=== PATIENT | male | born 1985 | race Caucasian/White ===

== ENCOUNTER 2017-01-17 22:10 | Emergency (ER) | payer BC ==
[2017-01-17 22:42] LABS: #Lymphocytes 0.9 thou/uL (1.20-3.40); #Monocytes 0.7 thou/uL (0.11-0.59); #Neutrophils 10.7 thou/uL (1.40-6.50); %Basophils 0.2 % (0.0-1.0); %Eosinophils 0.4 % (0.0-10.0); %Lymphocytes 7.4 % (21.0-51.0); %Monocytes 5.7 % (0.0-10.0); Red Blood Cell (RBC) Count 5.76 mill/uL (4.70-6.10); White Blood Cell (WBC) Count 12.4 thou/uL (4.8-10.8)
[2017-01-17 22:53] LABS: Bilirubin Negative (Negative); Blood, Urine Negative (Negative); Glucose, Urine (Dipstick) Negative (Negative); Ketone, Urine Trace mg/dL (Negative); Nitrite Negative (Negative); Protein, Urine (Dipstick) Trace mg/dL (Neg-Trace); Urobilinogen 0.2 mg/dL (0.2-1.0)
[2017-01-17 23:04] LABS: ALT (SGPT) 37 U/L (8-55); AST (SGOT) 27 U/L (5-34); Alkaline Phosphatase 48 U/L (40-150); Anion Gap 13 mmol/L (10-20); BUN (Urea Nitrogen) 12 mg/dL (8.9-20.6); Bilirubin, Total 0.9 mg/dL (0.2-1.2); Calc. Creatinine Clearance 0 mL/min (70-130); Calcium 9.9 mg/dL (7.8-10.44); Carbon Dioxide 25 mmol/L (22-29); Chloride 102 mmol/L (98-107); Estimated GFR-MDRD 69; Globulin 3.7 g/dL (2.4-3.5); Protein, Total 8.5 g/dL (6.0-8.3)
[2017-01-18] MEDS ORDERED: Mag-Al 1200 mg/1200 mg/30 ML UDCUP ONE (01:26)
[2017-01-18] MEDS ORDERED: Lidocaine Viscous Sol 2% 15 ml UD Cup ONE (01:26)
--- NOTE | 2017-01-18 07:53 | ULT ---
PRELIMINARY REPORT/[facility]/EMERGENCY AFTER HOURS PROCEDURE: EXAM: US Abdomen Limited, Right Upper Quadrant CLINICAL HISTORY: 31 years old, male; Pain and signs and symptoms; Nausea and other: Diarrhea; Abdominal pain; Epigastr ic; Patient HX: Epigastric burning pain after eating, diarrhea x 1 day TECHNIQUE: Real-time ultrasound of the right upper quadrant with image documentation. COMPARISON: No relevant prior studies available. FINDINGS: Suspect a small amount of biliary sludge in the gallbladder. No cholelithiasis/shadowing gallstones. No gallbladder wall thickening or pericholecystic fluid. No biliary dilation, common duct measures 3.5 mm. Slight increased echogenicity of the liver may indicate fatty infiltration. Otherwise unremarkable liver, no focal abnormality. Visible pancreas unremarkable. Images of the right kidney show no hydronephrosis. IMPRESSION: Small amount of biliary sludge in the gallbladder. No cholelithiasis or shadowing gallstones. No biliary tree dilation. Other details discussed above. Thank you for allowing us to participate in the care of your patient. Dictated and Authenticated by: Angel Brown MD 01/18/2017 12:57 AM Central Time ([place] & [place]) FINAL REPORT RIGHT UPPER QUADRANT ULTRASOUND: EMERGENCY AFTER HOURS STUDY: Date: 01-18-17 Time: 12:18 a.m. FINAL REPORT: Increased liver echogenicity. Sludge within the gallbladder without overt gallstones or acute cholecy stitis. Code QA/agree with [facility]. POS: DAVID
== END 2017-01-18 03:37 | disposition home or self-care (01) ==
LOC: ERS 22:10
DX: K83.9 Disease of biliary tract, unspecified (principal); R10.13 Epigastric pain
CPT/HCPCS: 36415; 76705; 80053; 81003; 83690; 85025; 96360; 96361